=== PATIENT | male | born 2000 | race Caucasian/White ===

== ENCOUNTER 2023-06-12 16:21 | Emergency (ER) | payer OTHER, SELFPAY ==
--- NOTE | ~2023-06-12 | XR_ITS ---
XR chest 2V DATE: 06/12/2023 16:40 INDICATION: Fever, shortness of breath, productive cough TECHNIQUE: 2 views COMPARISON: None FINDINGS: Bilateral hyperinflation. No pulmonary infiltrate or consolidation, pleural effusion or pul monary vascular congestion or pneumothorax is detected. The cardiac and mediastinal silhouettes appear normal. Included skeletal structures are unremarkable. IMPRESSION: Bilateral hyperinflation; otherwise no active cardiopulmonary disease Reviewed, dictated and finalized at location B. FLOW OPERATOR IMPRESSION: Bilateral hyperinflation; otherwise no active cardiopulmonary disea se
--- NOTE | 2023-06-12 16:23 | ED.URI ---
HPI - URI/Sore Throat General Chief Complaint: Upper Respiratory Infection Stated Complaint: throb head/throat/nose Time Seen by Provider: 06/12/23 16:23 Source: patient Mode of arrival: ambulatory Limitations: no limitations History of Present Illness HPI Narrative: Roberto is a 23-year-old male patient presenting to the clinic today with complaints of sore throat, headache, body aches, and nasal congestion x1.5 weeks. He reports highest fever was 103 today. Reports he is coughing up some seo phlegm and does have some mild shortness of breath. MD elicited complaint: sore throat and nasal congestion Related Data Allergies Allergy/AdvReac Type Severity Reaction Status Date / Time No Known Allergies Allergy Verified 06/12/23 16:37 Review of Systems Review of Systems: Pertinent positives per HPI. Patient denies any rash, headache, visual changes, dizziness, chest pain, palpitations, nausea, vomiting, diarrhea, constipation, abdominal pain, or any urinary issues. [facility] Past Medical History Medical History (Updated 06/12/23 @ 17:02 by Len Tian APRN) Finger injury Comments At the time of my signature, I reviewed and agree with the nursing past medical, surgical, social, and family history. There is no relevant family history pertinent to the patient complaint. Exam Narrative: General: Well-developed, well nourished, in no apparent distress Head: Normocephalic, atraumatic Eyes: Pupils equally round and reactive to light bilaterally, EOM intact, sclera and conjunctive clear, no discharge, lids normal Ears: TMs intact and congested, ear canals clear, no drainage, grossly hearing normal. Nose: Nares patent, clear nasal discharge, no inflammation, no sinus tenderness. Mouth: Oropharynx red with bilateral tonsillar enlargement without lesions or masses, good dentition, MMM. Neck: Supple, trachea midline, enlargement of anterior cervical nodes, no thyroid masses or goiter palpable. Cardio: Regular rate and rhythm, s1 and s2 normal, no murmur appreciated. Resp: Clear to auscultation bilaterally anteriorly and posteriorly, no rhonchi, rales, wheezing or rubs Course Course Emergency Course: Portions of this record may have been created with voice recognition software. Level of Care: Express Care Visit Vital Signs Vital signs: Vital Signs Temperature 39.5 C H 06/12/23 16:27 Pulse Rate 133 H 06/12/23 16:27 Respiratory Rate 20 06/12/23 16:27 Blood Pressure 115/73 06/12/23 16:27 Pulse Oximetry 97 06/12/23 16:27 Oxygen Delivery Room Air 06/12/23 16:27 Temperature 38.7 C H 06/12/23 17:10 Pulse Rate 120 H 06/12/23 17:05 Respiratory Rate 18 06/12/23 17:05 Blood Pressure 115/73 06/12/23 16:27 Pulse Oximetry 98 06/12/23 17:05 Oxygen Delivery Room Air 06/12/23 17:05 Vital signs reviewed MDM - URI/Sore Throat MDM Narrative Medical decision making narrative: At the time of visit patient is resting comfortably on the exam table. Baxter, strep, and chest x-ray were all negative in the clinic today. I will place the patient on Augmentin to treat for lower respiratory tract infection. Supportive measures were discussed with the patient he voiced understanding of discharge instructions and agrees to treatment plan. Differential Diagnosis Differential diagnosis: Likely upper respiratory infection, otitis media, sinusitis, viral infection, bronchitis, influenza, pharyngitis and other (COVID) Lab Data Labs: Strep Screen Presumptive Negative *(Reference Range: Negative)* Baxter Screen Negative (Reference Range: Negative) Discharge Plan Discharge Clinical Impression: Acute lower respiratory tract infection Pharyngitis Qualifiers: Pharyngitis/tonsillitis etiology: unspecified etiology Qualified Code(s): J02.
[2023-06-12 16:27] VITALS: BP 115/73; PULSE 133; RESP 20; TEMP 39.5; O2SAT 97
[2023-06-12 16:49] VITALS: TEMP 39.6
[2023-06-12] MEDS: ACETAMINOPHEN 500 MG TABLET 1000 MG PO (16:49)
[2023-06-12 17:05] VITALS: PULSE 120; RESP 18; TEMP 38.7; O2SAT 98
[2023-06-12 17:10] VITALS: TEMP 38.7
== END 2023-06-12 17:05 | disposition home or self-care (01) ==
PROVIDERS: Emergency Provider Nurse Practitioner Family
DX: J22 Unspecified acute lower respiratory infection (principal); J02.9 Acute pharyngitis, unspecified
CPT/HCPCS: 36416; 71046; 86308; 87081; 87880; 99213; A9270; G0463